=== PATIENT | female | born 1980 | race Caucasian/White ===

== ENCOUNTER 2020-05-21 21:47 | Emergency (ER) | payer MEDICAID ==
[~2020-05-21] VITALS: Ht 167.6 cm; Wt 74.4 kg
--- NOTE | 2020-05-21 22:00 | NUR ---
pt [facility] 102 for etoh, unwitnessed glf. laceration to right brow. PT AAOX3, VSS. RR EVEN & UNLABORED. DENIES CP, SOB, DIZZINESS, N/V AT THIS TIME. PT SEEN & EVAL'D BY DR. GARDNER. WILL CONT TO MONITOR.
--- NOTE | 2020-05-21 22:30 | NUR ---
PT TO CT VIA [facility].
--- NOTE | 2020-05-21 22:36 | NUR ---
PT BACK FROM CT, BED 11
--- NOTE | 2020-05-21 23:30 | NUR ---
REPORT RECEIVED FROM BALBINA OLIVEIRA FOR [facility]
--- NOTE | 2020-05-22 00:19 | NUR ---
Patient discharged to home in stable condition. Written and verbal after care instructions given. Patient verbalizes understanding of instruction.
[2020-05-22 00:20] VITALS: BP 127/81
== END 2020-05-22 00:20 | disposition home or self-care (01) ==
LOC: EDBD 21:50 → ER 21:50
DX: S01.111A Laceration without foreign body of right eyelid and periocular area, initial encounter (principal); F10.129 Alcohol abuse with intoxication, unspecified; W18.39XA Other fall on same level, initial encounter; Y93.89 Activity, other specified; Y92.89 Other specified places as the place of occurrence of the external cause; Y99.8 Other external cause status; Y90.9 Presence of alcohol in blood, level not specified
CPT/HCPCS: 70450-TC; 70486-TC; 72125-TC